=== PATIENT | male | born 1975 | race Caucasian/White ===

== ENCOUNTER 2019-07-21 13:36 | Emergency (ER) | payer OTHER ==
[2019-07-21 15:21] LABS: Absolute Lymphocytes (CBC) 2.1 K/uL (0.7-4.9); Basophils % 0.5 % (0-1.3); Hematocrit 45.9 % (39.6-49.0); Lymphocytes % 33.1 % (15.3-44.8); MPV 8.2 fL (7.6-11.3); RBC Red Blood Cell Count 5.32 M/uL (4.33-5.43)
[2019-07-21 16:11] LABS: ALT/SGPT 23 U/L (12-78); AST/SGOT 19 U/L (15-37); Albumin 4.1 g/dL (3.4-5.0); BUN Blood Urea Nitrogen 10 mg/dL (7-18); Bicarbonate 30 mmol/L (21-32); Bilirubin Direct 0.1 mg/dL (0-0.2); Bilirubin Total 0.7 mg/dL (0.2-1.0); Glucose Level 88 mg/dL (74-106); Lipase 161 U/L (73-393); Potassium 3.9 mmol/L (3.5-5.1); Sodium Level 140 mmol/L (136-145)
[2019-07-21 16:24] LABS: Alkaline Phosphatase 92 U/L (45-117); NT PRO-BNP 39 pg/mL (<125); Troponin (Emerg Dept Use Only) < 0.02 ng/mL (0.0-0.045)
--- NOTE | 2019-07-21 16:28 | EDPHYS ---
Physician Documentation [facility] Name: Jason Elise Age: 44 yrs Sex: Male : 1975 Arrival Date: 07/21/2019 Time: 13:41 Bed 16 Private MD: ED Physician Tod Stone HPI: 07/21 14:29 This 44 yrs old Male presents to ER via Ambulatory with complaints of Chest nehemias Pain, Fall Injury. 14:29 The patient or guardian reports chest pain that is located primarily in the anterior nehemias chest wall, left. Onset: 3 week(s) ago. The pain does not radiate. Associated signs and symptoms: The patient has no apparent associated signs or symptoms. The chest pain is described as aching. Modifying factors: The symptoms are alleviated by nothing. the symptoms are aggravated by nothing. Severity of pain: At its worst the pain was mild in the emergency department the pain is unchanged. Historical: - Allergies: 13:46 PENICILLINS; sv 13:46 Biaxin; sv 13:46 Sudafed; sv 13:46 Clindamycin; sv - PMHx: 13:46 None; sv - PSHx: 13:46 None; sv - Immunization history:: Adult Immunizations unknown. - Family history:: not pertinent. - Social history:: Smoking status: Patient/guardian denies using tobacco. - Ebola Screening: : No symptoms or risks identified at this time. ROS: 14:29 Constitutional: Negative for fever, chills, and weight loss, Eyes: Negative for injury, nehemias pain, redness, and discharge, ENT: Negative for injury, pain, and discharge, Neck: Negative for injury, pain, and swelling, Respiratory: Negative for shortness of breath, cough, wheezing, and pleuritic chest pain, Abdomen/GI: Negative for abdominal pain, nausea, vomiting, diarrhea, and constipation, Back: Negative for injury and pain, : Negative for injury, bleeding, discharge, and swelling, MS/Extremity: Negative for injury and deformity, Skin: Negative for injury, rash, and discoloration, Neuro: Negative for headache, weakness, numbness, tingling, and seizure, Psych: Negative for depression, anxiety, suicide ideation, homicidal ideation, and hallucinations, Allergy/Immunology: Negative for hives, rash, and allergies, Endocrine: Negative for neck swelling, polydipsia, polyuria, polyphagia, and marked weight changes, Hematologic/Lymphatic: Negative for swollen nodes, abnormal bleeding, and unusual bruising. 14:29 Cardiovascular: Positive for chest pain, Negative for chest pain. Exam: 14:29 Constitutional: This is a well developed, well nourished patient who is awake, alert, nehemias and in no acute distress. Head/Face: Normocephalic, atraumatic. Eyes: Pupils equal round and reactive to light, extra-ocular motions intact. Lids and lashes normal. Conjunctiva and sclera are non-icteric and not injected. Cornea within normal limits. Periorbital areas with no swelling, redness, or edema. ENT: Nares patent. No nasal discharge, no septal abnormalities noted. Tympanic membranes are normal and external auditory canals are clear. Oropharynx with no redness, swelling, or masses, exudates, or evidence of obstruction, uvula midline. Mucous membranes moist. Neck: Trachea midline, no thyromegaly or masses palpated, and no cervical lymphadenopathy. Supple, full range of motion without nuchal rigidity, or vertebral point tenderness. No Meningismus. Chest/axilla: Normal chest wall appearance and motion. Nontender with no deformity. No lesions are appreciated. Respiratory: Lungs have equal breath sounds bilaterally, clear to auscultation and percussion. No rales, rhonchi or wheezes noted. No increased work of breathing, no retractions or nasal flaring. Abdomen/GI: Soft, non-tender, with normal bowel sounds. No distension or tympany. No guarding or rebound. No evidence of tenderness throughout. Back: No spinal tenderness. No costovertebral tenderness. Full range of motion. Male : Normal genitalia with no discharge or lesions. Skin: Warm, dry with normal turgor. Normal color with no rashes, no lesions, and no evidence of cellulitis. MS/ Extremity: Pulses equal, no cyanosis. Neurovascular intact. Full, normal range of motion. Neuro: Awake and alert, GCS 15, oriented to person, place, time, and situation. Cranial nerves II-XII grossly intact. Motor strength 5/5 in all extremities. Sensory grossly intact. Cerebellar exam normal. Normal gait. Psych: Awake, alert, with orientation to person, place and time. Behavior, mood, and affect are within normal limits. 14:29 Cardiovascular: Rate: normal, Rhythm: regular, Pulses: Pulses are 4+ in bilateral radial, brachial, femoral, popliteal, posterior tibial and and dorsalis pedis arteries.. Heart sounds: normal, Edema: is not appreciated, JVD: is not appreciated. 14:59 Musculoskeletal/extremity: DVT Exam: No signs of deep vein thrombosis. no pain, no nehemias swelling, no tenderness, negative Homans' sign noted on exam, no appreciated bluish discoloration, no erythema, no increased warmth. Vital Signs: 13:46 BP 128 / 93; Pulse 55; Resp 18; Temp 97.8(TE); Pulse Ox 100% ; Weight 81.65 kg; Height sv 5 ft. 5 in. (165.10 cm); Pain 2/10; 16:46 BP 128 / 79; Pulse 57; Resp 18; Pulse Ox 99% on R/A; ph 13:46 Body Mass Index 29.95 (81.65 kg, 165.10 cm) sv MDM: 13:53 Patient medically screened. [facility] 14:29 Data reviewed: vital signs, nurses notes, lab test result(s), EKG, radiologic studies, [facility] plain films. 07/21 14:29 Order name: Basic Metabolic Panel; Complete Time: 16:26 [facility] 07/21 14:29 Order name: CBC with Diff; Complete Time: 15:31 [facility] 07/21 14:29 Order name: LFT's; Complete Time: 16:26 [facility] 07/21 14:29 Order name: Magnesium; Complete Time: 16:26 [facility] 07/21 14:29 Order name: NT PRO-BNP; Complete Time: 16:26 [facility] 07/21 14:29 Order name: PT-INR; Complete Time: 15:50 [facility] 07/21 14:29 Order name: Troponin (emerg Dept Use Only); Complete Time: 16:26 [facility] 07/21 14:29 Order name: XRAY Chest (1 view) [facility] 07/21 14:29 Order name: EKG; Complete Time: 14:30 [facility] 07/21 14:29 Order name: Cardiac monitoring [facility] 07/21 14:29 Order name: Lipase; Complete Time: 16:26 [facility] 07/21 14:29 Order name: C Spine Ap/Lat XRAY [facility] 07/21 14:29 Order name: EKG - Nurse/Tech [facility] 07/21 14:29 Order name: IV Saline Lock [facility] 07/21 14:29 Order name: Labs collected and sent [facility] 07/21 14:29 Order name: O2 Per Protocol [facility] 07/21 14:29 Order name: O2 Sat Monitoring [facility] Administered Medications: 15:30 Drug: Aspirin 162 mg Route: PO; ph 17:02 Follow up: Response: No adverse reaction ph Disposition: 07/21/19 16:27 Discharged to Home. Impression: Chest pain, unspecified, Bradycardia, unspecified, Essential (primary) hypertension. - Condition is Stable. - Discharge Instructions: Nonspecific Chest Pain, Chest Wall Pain, [id number], Nonspecific Chest Pain, [id number], Aspirin and Your Heart. - Prescriptions for Lisinopril 5 mg Oral Tablet - take 1 tablet by ORAL route once daily; 20 tablet. - Medication Reconciliation Form, Thank You Letter, Antibiotic Education, Prescription Opioid Use, Work release form form. - Follow up: Private Physician; When: 2 - 3 days; Reason: Recheck today's complaints, Continuance of care, Re-evaluation by your physician. Follow up: Nilson Shaw; When: 2 - 3 days; Reason: Recheck today's complaints, Re-evaluation by your physician. - Problem is new. - Symptoms have improved. Signatures: Dispatcher [employer] EDAlicia Karimi RN RN Tod Espinosa MD MD cha Hall, Patricia, RN RN ph Corrections: (The following items were deleted from the chart) 17:04 16:27 07/21/2019 16:27 Discharged to Home. Impression: Chest pain, unspecified; ph Bradycardia, unspecified; Essential (primary) hypertension. Condition is Stable. Discharge Instructions: Nonspecific Chest Pain, Chest Wall Pain, [id number], Nonspecific Chest Pain, [id number], Aspirin and Your Heart. Prescriptions for Lisinopril 5 mg Oral Tablet - take 1 tablet by ORAL route once daily; 20 tablet. and Forms are Medication Reconciliation Form, Thank You Letter, Antibiotic Education, Prescription Opioid Use. Follow up: Private Physician; When: 2 - 3 days; Reason: Recheck today's complaints, Continuance of care, Re-evaluation by your physician. Follow up: Nilson Shaw; When: 2 - 3 days; Reason: Recheck today's complaints, Re-evaluation by your physician. Problem is new. Symptoms have improved. nehemias
--- NOTE | 2019-07-21 16:28 | ER ---
Nurse's Notes [facility] Name: Jason Elise Age: 44 yrs Sex: Male : 1975 Arrival Date: 07/21/2019 Time: 13:41 Bed 16 Private MD: Diagnosis: Chest pain, unspecified;Bradycardia, unspecified;Essential (primary) hypertension Presentation: 07/21 13:44 Presenting complaint: Patient states: sent by [facility], pt reports slipping sv and falling on stairs at work and landed mostly on his left side, with most of the weight placed onto the left elbow; never had pain after that incident. Pt reports this he had a sharp pain on the left hand that started a couple of days ago. c/o left chest discomfort. Transition of care: patient was not received from another setting of care. Onset of symptoms was June 2019. Risk Assessment: Do you want to hurt yourself or someone else? Patient reports no desire to harm self or others. Initial Sepsis Screen: Does the patient meet any 2 criteria? No. Patient's initial sepsis screen is negative. Does the patient have a suspected source of infection? No. Patient's initial sepsis screen is negative. Care prior to arrival: None. 13:44 Method Of Arrival: Ambulatory sv 13:44 Acuity: BOUCHRA 3 sv Historical: - Allergies: 13:46 PENICILLINS; sv 13:46 Biaxin; sv 13:46 Sudafed; sv 13:46 Clindamycin; sv - PMHx: 13:46 None; sv - PSHx: 13:46 None; sv - Immunization history:: Adult Immunizations unknown. - Family history:: not pertinent. - Social history:: Smoking status: Patient/guardian denies using tobacco. - Ebola Screening: : No symptoms or risks identified at this time. Screenin:11 Abuse screen: Denies threats or abuse. Denies injuries from another. Nutritional ph screening: No deficits noted. Tuberculosis screening: No symptoms or risk factors identified. Fall Risk None identified. Assessment: 15:10 General: Appears in no apparent distress. comfortable, well groomed, Behavior is calm, ph cooperative, appropriate for age, Denies fever, feeling ill. Pain: Complains of pain in left clavicle, anterior aspect of left upper chest, mid-sternal area and left hand Pain does not radiate. Pain began 2-3 days ago. Neuro: Level of Consciousness is awake, alert, obeys commands, Oriented to person, place, time, situation. Cardiovascular: Reports chest pain, Denies lightheadedness, nausea, shortness of breath. Respiratory: Airway is patent Respiratory effort is even, unlabored. Derm: Skin is intact, is healthy with good turgor, Skin is pink, warm \T\ dry. Vital Signs: 13:46 BP 128 / 93; Pulse 55; Resp 18; Temp 97.8(TE); Pulse Ox 100% ; Weight 81.65 kg; Height sv 5 ft. 5 in. (165.10 cm); Pain 2/10; 16:46 BP 128 / 79; Pulse 57; Resp 18; Pulse Ox 99% on R/A; ph 13:46 Body Mass Index 29.95 (81.65 kg, 165.10 cm) sv ED Course: 13:41 Patient arrived in ED. mr 13:45 Triage completed. sv 13:46 Arm band placed on. sv 13:50 Bianca Winston, JANINE is Primary Nurse. ph 13:53 Tod Stone MD is Attending Physician. nehemias 15:00 Patient has correct armband on for positive identification. Bed in low position. Call ph light in reach. Side rails up X 1. Pulse ox on. NIBP on. Door closed. Noise minimized. Warm blanket given. 15:01 EKG done, by metal room dental technician. reviewed by Tod Stone MD. sm3 15:09 Inserted saline lock: 22 gauge in left antecubital area, using aseptic technique. ph 16:01 XRAY Chest (1 view) In Process Unspecified. EDMS 16:01 C Spine Ap/Lat XRAY In Process Unspecified. EDMS 16:26 Nilson Shaw MD is Referral Physician. nehemias 17:00 No provider procedures requiring assistance completed. IV discontinued, intact, ph bleeding controlled, No redness/swelling at site. Pressure dressing applied. Patient maintains SpO2 saturation greater than 95% on room air. Administered Medications: 15:30 Drug: Aspirin 162 mg Route: PO; ph 17:02 Follow up: Response: No adverse reaction ph Outcome: 16:27 Discharge ordered by MD. nehemias 17:04 Patient left the ED. ph 17:04 Discharged to home ambulatory. ph 17:04 Condition: good 17:04 Discharge instructions given to patient, Instructed on discharge instructions, follow up and referral plans. medication usage, Demonstrated understanding of instructions, follow-up care, medications, Prescriptions given X 1. Signatures: Dispatcher [employer] Alicia Varghese, Tdo Waldrop RN, MD MD cha Rivera, Zulma mr Bianca Winston RN RN Eleazar, Jami [facility]
[2019-07-21 17:32] VITALS: TEMP 97.8
[2019-07-21 17:33] VITALS: BP 128/79; O2SAT 99
--- NOTE | 2019-07-22 19:06 | EKG ---
Test Date: 2019-07-21 Test Time: 14:53:26 Job Foreman: ROLAND MEASUREMENT RESULTS: Intervals: Rate: 50 OK: 128 QRSD: 80 QT: 428 QTc: 390 [place]: P: 21 OK: 128 QRS: 63 T: 18 INTERPRETIVE STATEMENTS: Sinus bradycardia Otherwise normal ECG No previous ECG available for comparison Electronically Signed On 07-21-19 17:49:54 CDT by Bry Jansen
--- NOTE | 2019-07-26 10:06 | RAD REPORT ---
EXAM DESCRIPTION: RAD CHEST SINGLE VIEW CLINICAL HISTORY: Chest pain COMPARISON: None TECHNIQUE: Single view of the chest obtained FINDINGS: The lungs are clear. The heart and vasculature are within normal limits. No pneumothorax or pleural effusion. No acute bone finding. IMPRESSION: Negative single view chest examination. Due to [employer]/ fluency/packs technical issues signed final reports were delayed. Verbal reports were telephoned to the referring clinician at the time of the study and/or preliminary written reports were generated as soon as possible.
--- NOTE | 2019-07-26 10:16 | RAD REPORT ---
EXAM DESCRIPTION: DARNELL RENEE CLINICAL HISTORY: Neck pain and left upper extremity pain. COMPARISON: None. TECHNIQUE: AP, lateral and odontoid views of the cervical spine were obtained. FINDINGS: Cervical bodies are normal in height and alignment. Mild anterior endplate spurs are present C4-6. C5-6 disc space is narrowed slightly. Significant posterior endplate spurring in the cervical spine and no significant facet degenerative change. No abnormal prevertebral soft tissue thickening. IMPRESSION: 1. Mild cervical spine degenerative change. Disc space narrowing present at C5-6 2. No acute finding.
--- NOTE | 2019-07-26 10:23 | RAD REPORT ---
EXAM DESCRIPTION: RAD - CSPINE CLINICAL HISTORY: Neck pain and left upper extremity pain COMPARISON: None. TECHNIQUE: AP, lateral and odontoid views of the cervical spine obtained. FINDINGS: Cervical bodies are normal in height and alignment. Mild anterior endplate spurs are present C4-6. C5-6 disc space is narrowed slightly. No significant posterior endplate spurring in the cervical spine and no significant facet degenerative change. No abnormal prevertebral soft tissue thickening. IMPRESSION: 1, Mild cervical spine degenerative change. Disc space narrowing is present at C5-6. 2. No acute finding. Due to [employer]/ [employer] technical issues signed final reports were delayed. Verbal reports were telephoned to the referring clinician at the time of the study and/or preliminary written reports were generated as soon as possible.
== END 2019-07-21 17:04 | disposition home or self-care (01) ==
LOC: ER 13:36
DX: R00.1 Bradycardia, unspecified (principal); I10 Essential (primary) hypertension; W19.XXXA Unspecified fall, initial encounter; Y93.9 Activity, unspecified; Y92.9 Unspecified place or not applicable; Z88.0 Allergy status to penicillin; Z88.3 Allergy status to other anti-infective agents; Z88.8 Allergy status to other drugs, medicaments and biological substances
CPT/HCPCS: 36415; 71045; 72040; 80048; 80076; 83690; 83735; 83880; 84484; 85025; 85610; 93005; 99284